=== PATIENT | male | born 1995 | race Caucasian/White ===

== ENCOUNTER 2018-02-02 10:52 | Emergency (ER) | payer OTHER ==
[2018-02-02 11:13] VITALS: BP 114/71
--- NOTE | 2018-02-02 12:03 | UC ---
Cardiac HPI - HPI Summary HPI Summary: 22 yo M c/o pain in chest muscle which began while doing overhead presses with a dumbell at the gym. Patient heard a "pop" and since then has had pain in R upper chest wall just lateral to sternum whenever her extends his shoulders back (stretches chest). He has not taken any medications for the pain. denies any reduced strength. no swelling in area - History of Current Complaint Chief Complaint: UCUpperExtremity Stated Complaint: PAIN IN STERNUM AFTER WEIGHT LIFTING Time Seen by Provider: 02/02/18 11:55 Pain Intensity: 6 - Allergy/Home Medications Allergies/Adverse Reactions: Allergies Allergy/AdvReac Type Severity Reaction Status Date / Time Penicillins Allergy Hives Verified 02/02/18 11:13 Home Medications: Home Medications Lialda 4.8 PO DAILY 02/02/18 [History] Mercaptopurine TAB* 100 mg PO DAILY 02/02/18 [History Confirmed 02/02/18] PMH/Surg Hx/FS Hx/Imm Hx - Surgical History Surgical History: None - Social History Alcohol Use: None Substance Use Type: None Smoking Status (MU): Never Smoked Tobacco Review of Systems All Other Systems Reviewed And Are Negative: Yes Physical Exam Triage Information Reviewed: Yes Appearance: Well-Appearing, No Pain Distress Vital Signs: Initial Vital Signs Temp 98 F 02/02/18 11:10 Pulse 43 02/02/18 11:10 Resp 15 02/02/18 11:10 BP 114/71 02/02/18 11:10 Pulse Ox 100 02/02/18 11:10 Cardiovascular Exam: Other - R side-supero medial pectoral muscle mildly TTP, no swelling, no bulge or redness - Assessment/Plan Course Of Treatment: likely partial muscle tear. patient instructed to rest and not engage in any activities that exacerbate pain for at least 1 week - Differential Diagnoses - Chest Pain Differential Diagnosis/HQI/PQRI: Other: - strain, sprain - Clinical Impression Provider Diagnoses: pain in chest wall Discharge - Sign-Out/Discharge Documenting (check all that apply): Patient Departure All imaging exams completed and their final reports reviewed: No Studies - Discharge Plan Condition: Stable Disposition: HOME Patient Education Materials: Muscle Strain (ED) Referrals: No Primary Care Phys,NOPCP [Primary Care Provider] - Additional Instructions: Avoid physical activities for 1 week, especially activities which exacerbate your pain. - Billing Disposition and Condition Condition: STABLE Disposition: Home
== END 2018-02-02 12:07 | disposition home or self-care (01) ==
LOC: UCEAST 10:52
DX: R07.89 Other chest pain (principal); Z88.0 Allergy status to penicillin
CPT/HCPCS: 99201; G0463